=== PATIENT | female | born 1985 | race American Indian/Alaskan Native ===

== ENCOUNTER 2017-05-13 13:40 | Inpatient (IN) | payer MEDICAID ==
[2017-05-13] MEDS ORDERED: NACL 0.9% 1000 ML 2,000 ML ONE (13:47)
[2017-05-13] MEDS ORDERED: NACL 0.9% 500 ML 500 ML IV ONE (13:48)
[2017-05-13 14:09] LABS: Hematocrit 38.7 % (30.3-42.9); Hemoglobin 13.1 gm/dl (10.1-14.3); Mean Corpuscular HGB Conc 34 % (30-34); Mean Corpuscular Hemoglobin 30 pg (28-32); Mean Corpuscular Volume 89 fl (79-97); Platelet Count 214 K/mm3 (140-440); Red Blood Count 4.33 M/mm3 (3.65-5.03); Red Cell Distribution Width 12.6 % (13.2-15.2)
[2017-05-13] MEDS ORDERED: SUBLIMAZE IV ONE (14:16)
[2017-05-13] MEDS ORDERED: NACL 0.9% 1000 ML 2,000 ML IV ONE (14:16)
[2017-05-13] MEDS ORDERED: ZOFRAN IV ONE (14:16)
[2017-05-13] MEDS ORDERED: NACL 0.9% 1000 ML 1,000 ML IV ONE (14:16)
[2017-05-13] MEDS ORDERED: TYLENOL PO ONE (14:16)
--- NOTE | 2017-05-13 14:18 | Emergency Department Report ---
ED General Adult HPI - General Chief complaint: Weakness Stated complaint: UNRESPONSIVE Time Seen by Provider: 05/13/17 14:10 Source: patient, EMS (ems notes not available at time of chart dictation), RN notes reviewed Limitations: Physical Limitation - History of Present Illness Initial comments: This is a 32-year-old female who is previously unknown to this provider. The patient is brought to the hospital by EMS. To me, the patient endorses a complaint of chest pain and abdominal pain. Her symptoms have or present since yesterday. They're constant. Patient reports being seen at another hospital yesterday, [facility], and was presently diagnosed with pelvic inflammatory disease. Apparently she did not fill her antibiotics. As per verbal report from the nurse who triaged the patient, who in turn received verbal report from EMS, the patient was apparently found at home by EMS on account minimally responsive. They report that a child at home and contacted family using a face time application a cellular phone, and that the family contacted 911. The patient has no recollection of this. She denies headache, neck pain. Patient declines a pelvic examination. -: Gradual Location: chest, abdomen Consistency: constant Improves with: rest Worsens with: movement Associated Symptoms: chest pain, fever/chills, loss of appetite, malaise, weakness - Related Data Home Medications Medication Instructions Recorded Confirmed Last Taken No Known Home Medications [No 05/13/17 05/13/17 Unknown Reported Home Medications] Allergies Allergy/AdvReac Type Severity Reaction Status Date / Time Penicillins Allergy Rash Verified 05/13/17 14:07 ED Review of Systems ROS: Stated complaint: UNRESPONSIVE Other details as noted in HPI Comment: Unobtainable due to pts medical conditions Constitutional: fever, malaise Eyes: denies: vision change ENT: denies: epistaxis Respiratory: denies: wheezing Cardiovascular: chest pain Gastrointestinal: abdominal pain Neurological: confusion ED Past Medical Hx - Medications Home Medications: Home Medications Medication Instructions Recorded Confirmed Last Taken Type No Known Home Medications [No 05/13/17 05/13/17 Unknown History Reported Home Medications] ED Physical Exam - General Limitations: Physical Limitation General appearance: alert, in distress - Head Head exam: Present: atraumatic, normocephalic - Eye Eye exam: Present: normal appearance, EOMI - ENT ENT exam: Present: normal exam, normal orophraynx, mucous membranes moist, normal external ear exam - Neck Neck exam: Present: normal inspection, full ROM - Respiratory Respiratory exam: Present: normal lung sounds bilaterally. Absent: respiratory distress - Cardiovascular Cardiovascular Exam: Present: normal rhythm, tachycardia, normal heart sounds. Absent: systolic murmur, diastolic murmur, rubs, gallop - GI/Abdominal GI/Abdominal exam: Present: soft, tenderness, normal bowel sounds. Absent: distended, guarding, rebound, rigid, pulsatile mass - Extremities Exam Extremities exam: Present: normal inspection, full ROM, normal capillary refill. Absent: pedal edema, joint swelling, calf tenderness - Back Exam Back exam: Present: normal inspection, full ROM. Absent: tenderness, CVA tenderness (R), paraspinal tenderness, vertebral tenderness - Neurological Exam Neurological exam: Present: alert, oriented X3, CN II-XII intact, other ( Extraocular movements intact. Tongue midline. No facial droop. Facial sensation intact to light touch in the V1, V2, V3 distribution bilaterally. 5 and 5 strength in 4 extremities.. Sensation is intact to light touch in 4 extremities.). Absent: motor sensory deficit - Psychiatric Psychiatric exam: Present: anxious - Skin Skin exam: Present: warm, dry, intact, normal color. Absent: rash ED Course Vital Signs 05/13/17 05/13/17 05/13/17 13:50 14:41 16:57 Temperature 101.3 F H 102.7 F H Pulse Rate 135 H 132 H Respiratory 16 30 H 32 H Rate Blood Pressure 112/67 Blood Pressure 122/71 [Left] O2 Sat by Pulse 95 100 Oximetry 05/13/17 17:17 Temperature Pulse Rate Respiratory 28 H Rate Blood Pressure Blood Pressure [Left] O2 Sat by Pulse Oximetry - Reevaluation(s) Reevaluation #1: 05/13/17 16:40 Differential diagnosis, including but not limited to: Intracranial injury, intra -abdominal infection, thoracic infection, systemic inflammatory response syndrome Assessment and plan: 32-year-old female who is currently awake, alert and oriented, appears distressed but is currently not delirious or encephalopathic in my exam, does not have any neck pain or neck stiffness. Objectively speaking she is febrile, tachycardic with leukocytosis. Patient endorses rest of penicillins. She is loaded empirically with ceftriaxone, IV fluids and acetaminophen. A noncontrast CT scan of the brain was negative.Patient is clinically sober at this time. The cervical spine is cleared through nexus and barbadian c spine rule Given fever, tachycardia, abnormal vital signs, we will obtain CT scan of the chest, abdomen, pelvis. Patient declined a pelvic examination. Reevaluation #2: 05/13/17 16:52 CT scan of the chest: Slight consolidation in both lower lungs posteriorly may be atelectasis and/or small infiltrates Slight hazy opacity in the pulmonary parenchymal bilaterally may be mild pulmonary edema Azithromycin ordered for additional coverage Reevaluation #3: 05/13/17 17:51 Case discussed with gynecology, Dr. kriss Shelby, she is going to follow in consultation. Agrees with antibiotic coverage recommends Flagyl for additional anaerobic coverage. Given history of possible syncope, acute febrile illness/ sepsis syndrome, endorsement of chest pain, suggestion of bilateral lower lobe pneumonia, she requests medical admission, and indicates she will follow in consultation. Case presented to Dr. Murry the hospital physician he accepts the patient to the medical service. ED Medical Decision Making - Lab Data Result diagrams: 05/13/17 13:57 05/13/17 13:57 Vital Signs 05/13/17 05/13/17 13:50 14:41 Temperature 101.3 F H Pulse Rate 135 H Respiratory 16 30 H Rate Blood Pressure 112/67 O2 Sat by Pulse 95 Oximetry Lab Results 05/13/17 05/13/17 05/13/17 Range/Units 13:57 13:57 13:57 WBC 18.0 H (4.5-11.0) K/mm3 RBC 4.33 (3.65-5.03) M/mm3 Hgb 13.1 (10.1-14.3) gm/dl Hct 38.7 (30.3-42.9) % MCV 89 (79-97) fl MCH 30 (28-32) pg MCHC 34 (30-34) % RDW 12.6 L (13.2-15.2) % Plt Count 214 (140-440) K/mm3 Add Manual Diff Complete Total Counted 100 Seg Neutrophils % [employer] Seg Neuts % (Manual) 87.0 H (40.0-70.0) % Band Neutrophils % 7.0 % Lymphocytes % (Manual) 4.0 L (13.4-35.0) % Reactive Lymphs % (Man) 0 % Monocytes % (Manual) 2.0 (0.0-7.3) % Eosinophils % (Manual) 0 (0.0-4.3) % Basophils % (Manual) 0 (0.0-1.8) % Metamyelocytes % 0 % Myelocytes % 0 % Promyelocytes % 0 % Blast Cells % 0 % Nucleated RBC % Not Reportable Seg Neutrophils # Man 15.7 H (1.8-7.7) K/mm3 Band Neutrophils # 1.3 K/mm3 Lymphocytes # (Manual) 0.7 L (1.2-5.4) K/mm3 Abs React Lymphs (Man) 0.0 K/mm3 Monocytes # (Manual) 0.4 (0.0-0.8) K/mm3 Eosinophils # (Manual) 0.0 (0.0-0.4) K/mm3 Basophils # (Manual) 0.0 (0.0-0.1) K/mm3 Metamyelocytes # 0.0 K/mm3 Myelocytes # 0.0 K/mm3 Promyelocytes # 0.0 K/mm3 Blast Cells # 0.0 K/mm3 WBC Morphology Not Reportable Hypersegmented Neuts Not Reportable Hyposegmented Neuts Not Reportable Hypogranular Neuts Not Reportable Smudge Cells Not Reportable Toxic Granulation Not Reportable Toxic Vacuolation Not Reportable Dohle Bodies Not Reportable Pelger-Huet Anomaly Not Reportable Monik Rods Not Reportable Platelet Estimate Not Reportable Clumped Platelets Not Reportable Plt Clumps, EDTA Not Reportable Large Platelets Not Reportable Giant Platelets Not Reportable Platelet Satelliting Not Reportable Plt Morphology Comment Not Reportable RBC Morphology Normal Dimorphic RBCs Not Reportable Polychromasia Not Reportable Hypochromasia Not Reportable Poikilocytosis Not Reportable Anisocytosis Not Reportable Microcytosis Not Reportable Macrocytosis Not Reportable Spherocytes Not Reportable Pappenheimer Bodies Not Reportable Sickle Cells Not Reportable Target Cells Not Reportable Tear Drop Cells Not Reportable Ovalocytes Not Reportable Helmet Cells Not Reportable [place] Bodies Not Reportable [place] Rings Not Reportable [place] Cells Not Reportable Bite Cells Not Reportable Crenated Cell Not Reportable Elliptocytes Not Reportable Acanthocytes (Spur) Not Reportable Rouleaux Not Reportable Hemoglobin C Crystals Not Reportable Schistocytes Not Reportable Malaria parasites Not Reportable Ivan Bodies Not Reportable Hem Pathologist Commnt No PT 13.2 (12.2-14.9) Sec. INR 0.95 (0.87-1.13) VBG pH (7.320-7.420) Sodium 135 L (137-145) mmol/L Potassium 4.3 (3.6-5.0) mmol/L Chloride 97.1 L (98-107) mmol/L Carbon Dioxide 23 (22-30) mmol/L Anion Gap 19 mmol/L BUN 9 (7-17) mg/dL Creatinine 0.7 (0.7-1.2) mg/dL Estimated GFR > 60 ml/min BUN/Creatinine Ratio 13 % Glucose 114 H (65-100) mg/dL Lactic Acid (0.7-2.0) mmol/L Calcium 9.1 (8.4-10.2) mg/dL Total Bilirubin 0.70 (0.1-1.2) mg/dL AST 12 (5-40) units/L ALT 9 (7-56) units/L Alkaline Phosphatase 73 (35-129) units/L Total Protein 7.5 (6.3-8.2) g/dL Albumin 4.0 (3.9-5) g/dL Albumin/Globulin Ratio 1.1 % HCG, Quant (0-4) mIU/mL Urine Color (Yellow) Urine Turbidity (Clear) Urine pH (5.0-7.0) Ur Specific [place] (1.003-1.030) Urine Protein (Negative) mg/dL Urine Glucose (UA) (Negative) mg/dL Urine Ketones (Negative) mg/dL Urine Blood (Negative) Urine Nitrite (Negative) Urine Bilirubin (Negative) Urine Urobilinogen (<2.0) mg/dL Ur Leukocyte Esterase (Negative) Urine WBC (Auto) (0.0-6.0) /HPF Urine RBC (Auto) (0.0-6.0) /HPF U Epithel Cells (Auto) (0-13.0) /HPF Urine Bacteria (Auto) (Negative) /HPF Urine Mucus /HPF 05/13/17 05/13/17 05/13/17 Range/Units 13:57 13:57 14:20 WBC (4.5-11.0) K/mm3 RBC (3.65-5.03) M/mm3 Hgb (10.1-14.3) gm/dl Hct (30.3-42.9) % MCV (79-97) fl MCH (28-32) pg MCHC (30-34) % RDW (13.2-15.2) % Plt Count (140-440) K/mm3 Add Manual Diff Total Counted Seg Neutrophils % Seg Neuts % (Manual) (40.0-70.0) % Band Neutrophils % % Lymphocytes % (Manual) (13.4-35.0) % Reactive Lymphs % (Man) % Monocytes % (Manual) (0.0-7.3) % Eosinophils % (Manual) (0.0-4.3) % Basophils % (Manual) (0.0-1.8) % Metamyelocytes % % Myelocytes % % Promyelocytes % % Blast Cells % % Nucleated RBC % Seg Neutrophils # Man (1.8-7.7) K/mm3 Band Neutrophils # K/mm3 Lymphocytes # (Manual) (1.2-5.4) K/mm3 Abs React Lymphs (Man) K/mm3 Monocytes # (Manual) (0.0-0.8) K/mm3 Eosinophils # (Manual) (0.0-0.4) K/mm3 Basophils # (Manual) (0.0-0.1) K/mm3 Metamyelocytes # K/mm3 Myelocytes # K/mm3 Promyelocytes # K/mm3 Blast Cells # K/mm3 WBC Morphology Hypersegmented Neuts Hyposegmented Neuts Hypogranular Neuts Smudge Cells Toxic Granulation Toxic Vacuolation Dohle Bodies Pelger-Huet Anomaly Monik Rods Platelet Estimate Clumped Platelets Plt Clumps, EDTA Large Platelets Giant Platelets Platelet Satelliting Plt Morphology Comment RBC Morphology Dimorphic RBCs Polychromasia Hypochromasia Poikilocytosis Anisocytosis Microcytosis Macrocytosis Spherocytes Pappenheimer Bodies Sickle Cells Target Cells Tear Drop Cells Ovalocytes Helmet Cells [place] Bodies [place] Rings [place] Cells Bite Cells Crenated Cell Elliptocytes Acanthocytes (Spur) Rouleaux Hemoglobin C Crystals Schistocytes Malaria parasites Ivan Bodies Hem Pathologist Commnt PT (12.2-14.9) Sec. INR (0.87-1.13) VBG pH 7.392 (7.320-7.420) Sodium (137-145) mmol/L Potassium (3.6-5.0) mmol/L Chloride (98-107) mmol/L Carbon Dioxide (22-30) mmol/L Anion Gap mmol/L BUN (7-17) mg/dL Creatinine (0.7-1.2) mg/dL Estimated GFR ml/min BUN/Creatinine Ratio % Glucose (65-100) mg/dL Lactic Acid 0.90 (0.7-2.0) mmol/L Calcium (8.4-10.2) mg/dL Total Bilirubin (0.1-1.2) mg/dL AST (5-40) units/L ALT (7-56) units/L Alkaline Phosphatase (35-129) units/L Total Protein (6.3-8.2) g/dL Albumin (3.9-5) g/dL Albumin/Globulin Ratio % HCG, Quant < 2 (0-4) mIU/mL Urine Color (Yellow) Urine Turbidity (Clear) Urine pH (5.0-7.0) Ur Specific [place] (1.003-1.030) Urine Protein (Negative) mg/dL Urine Glucose (UA) (Negative) mg/dL Urine Ketones (Negative) mg/dL Urine Blood (Negative) Urine Nitrite (Negative) Urine Bilirubin (Negative) Urine Urobilinogen (<2.0) mg/dL Ur Leukocyte Esterase (Negative) Urine WBC (Auto) (0.0-6.0) /HPF Urine RBC (Auto) (0.0-6.0) /HPF U Epithel Cells (Auto) (0-13.0) /HPF Urine Bacteria (Auto) (Negative) /HPF Urine Mucus /HPF // Range/Units Unknown WBC (4.5-11.0) K/mm3 RBC (3.65-5.03) M/mm3 Hgb (10.1-14.3) gm/dl Hct (30.3-42.9) % MCV (79-97) fl MCH (28-32) pg MCHC (30-34) % RDW (13.2-15.2) % Plt Count (140-440) K/mm3 Add Manual Diff Total Counted Seg Neutrophils % Seg Neuts % (Manual) (40.0-70.0) % Band Neutrophils % % Lymphocytes % (Manual) (13.4-35.0) % Reactive Lymphs % (Man) % Monocytes % (Manual) (0.0-7.3) % Eosinophils % (Manual) (0.0-4.3) % Basophils % (Manual) (0.0-1.8) % Metamyelocytes % % Myelocytes % % Promyelocytes % % Blast Cells % % Nucleated RBC % Seg Neutrophils # Man (1.8-7.7) K/mm3 Band Neutrophils # K/mm3 Lymphocytes # (Manual) (1.2-5.4) K/mm3 Abs React Lymphs (Man) K/mm3 Monocytes # (Manual) (0.0-0.8) K/mm3 Eosinophils # (Manual) (0.0-0.4) K/mm3 Basophils # (Manual) (0.0-0.1) K/mm3 Metamyelocytes # K/mm3 Myelocytes # K/mm3 Promyelocytes # K/mm3 Blast Cells # K/mm3 WBC Morphology Hypersegmented Neuts Hyposegmented Neuts Hypogranular Neuts Smudge Cells Toxic Granulation Toxic Vacuolation Dohle Bodies Pelger-Huet Anomaly Monik Rods Platelet Estimate Clumped Platelets Plt Clumps, EDTA Large Platelets Giant Platelets Platelet Satelliting Plt Morphology Comment RBC Morphology Dimorphic RBCs Polychromasia Hypochromasia Poikilocytosis Anisocytosis Microcytosis Macrocytosis Spherocytes Pappenheimer Bodies Sickle Cells Target Cells Tear Drop Cells Ovalocytes Helmet Cells [place] Bodies [place] Rings Laure Cells Bite Cells Crenated Cell Elliptocytes Acanthocytes (Spur) Rouleaux Hemoglobin C Crystals Schistocytes Malaria parasites Ivan Bodies Hem Pathologist Commnt PT (12.2-14.9) Sec. INR (0.87-1.13) VBG pH (7.320-7.420) Sodium (137-145) mmol/L Potassium (3.6-5.0) mmol/L Chloride (98-107) mmol/L Carbon Dioxide (22-30) mmol/L Anion Gap mmol/L BUN (7-17) mg/dL Creatinine (0.7-1.2) mg/dL Estimated GFR ml/min BUN/Creatinine Ratio % Glucose (65-100) mg/dL Lactic Acid (0.7-2.0) mmol/L Calcium (8.4-10.2) mg/dL Total Bilirubin (0.1-1.2) mg/dL AST (5-40) units/L ALT (7-56) units/L Alkaline Phosphatase (35-129) units/L Total Protein (6.3-8.2) g/dL Albumin (3.9-5) g/dL Albumin/Globulin Ratio % HCG, Quant (0-4) mIU/mL Urine Color Yellow (Yellow) Urine Turbidity Clear (Clear) Urine pH 5.0 (5.0-7.0) Ur Specific [place] 1.033 H (1.003-1.030) Urine Protein 30 mg/dl (Negative) mg/dL Urine Glucose (UA) Neg (Negative) mg/dL Urine Ketones Tr (Negative) mg/dL Urine Blood Mod (Negative) Urine Nitrite Neg (Negative) Urine Bilirubin Neg (Negative) Urine Urobilinogen 2.0 (<2.0) mg/dL Ur Leukocyte Esterase Mod (Negative) Urine WBC (Auto) 5.0 (0.0-6.0) /HPF Urine RBC (Auto) 48.0 (0.0-6.0) /HPF U Epithel Cells (Auto) 3.0 (0-13.0) /HPF Urine Bacteria (Auto) 1+ (Negative) /HPF Urine Mucus 3+ /HPF - EKG Data -: EKG Interpreted by Wy - Radiology Data Radiology results: report reviewed, image reviewed Noncontrast CT scan of the brain: Negative as per radiology Report Referring Physician: RYLIE HARVEY Patient Name: ANDERSON ALFRED Date of : 1985 Sex: Female Report Date: 2017-05-13 Report Status: Finalized Findings [facility] [address] [place] [address] Cat Scan Report Signed Patient: ANDERSON ALFRED MR#: [id number] : 1985 Acct:[id number] Age/Sex: 32 / F ADM Date: 05/13/17 Loc: ED Attending Dr: Ordering Physician: RYLIE HARVEY MD Date of Service: 05/13/17 Procedure(s): CT abdomen pelvis w con Accession Number(s): [id number] cc: RYLIE HARVEY MD FINAL REPORT EXAM: CT ANGIOGRAPHY CHEST HISTORY: sob TECHNIQUE: CT examination of the chest with IV contrast CT angiographic 2D and thick slab 3D image post-processing PRIORS: AP CT 05/13/2017 FINDINGS: Cardiac size at upper limits of normal. No evidence of pericardial effusion. Intact normal caliber thoracic aorta. Normal-appearing esophagus. No hilar mass or mediastinal adenopathy. The visualized pulmonary arteries are diffusely patent bilaterally. There is no filling defect to suggest PE. No acute fracture. No pneumothorax. No definite pleural effusion. No definite lung mass or nodule. Linear densities and slight consolidation in both lower lungs posteriorly. Nonspecific hazy ground-glass opacity throughout both lungs diffusely. This may be mild pulmonary edema. IMPRESSION: Slight consolidation in both lower lungs posteriorly may be atelectasis and/or small infiltrates Slight hazy opacity in the pulmonary parenchymal bilaterally may be mild pulmonary edema No CT evidence of PE Transcribed By: BAL Dictated By: CORNELIO MENDEZ MD Electronically Authenticated By: CORNELIO MENDEZ MD Signed Date/Time: 05/13/17 1234 DD/ 1234 Critical care attestation.: If time is entered above; I have spent that time in minutes in the direct care of this critically ill patient, excluding procedure time. ED Disposition Clinical Impression: SIRS (systemic inflammatory response syndrome) Disposition: [id number] OP ADMIT IP TO THIS HOSP Is pt being admited?: Yes Condition: Good Referrals: PRIMARY CARE, [Primary Care Provider] - 3-5 Days
[2017-05-13 14:19] LABS: INR 0.95 (0.87-1.13)
[2017-05-13 14:24] LABS: BUN/Creatinine Ratio 13; Blood Urea Nitrogen 9 mg/dL (7-17); Calcium 9.1 mg/dL (8.4-10.2); Carbon Dioxide 23 mmol/L (22-30); Glucose 114 mg/dL (65-100)
[2017-05-13 14:25] LABS: Alanine Aminotransferase 9 units/L (7-56); Albumin/Globulin Ratio 1.1 %; Alkaline Phosphatase 73 units/L (35-129); Anion Gap 19 mmol/L; Chloride 97.1 mmol/L (98-107); Potassium 4.3 mmol/L (3.6-5.0); Sodium 135 mmol/L (137-145); Total Protein 7.5 g/dL (6.3-8.2)
[2017-05-13 14:36] LABS: Bacteria,Urine 1+ /HPF (Negative); Bilirubin,Urine NEG (Negative); Blood,Urine MOD (Negative); Ketones,Urine TR mg/dL (Negative); Leukocyte Esterase,Urine MOD (Negative); Mucus,Urine 3+ /HPF; Nitrite,Urine NEG (Negative)
[2017-05-13] MEDS ORDERED: NACL ONE (14:45)
--- NOTE | 2017-05-13 14:45 | XRay Report ---
PORTABLE CHEST INDICATION: Possible sepsis. COMPARISON: None similar at this institution. FINDINGS: Portable, frontal chest radiograph demonstrates limited inspiration with mild exaggerated cardiomediastinal silhouette. Grossly normal heart size and clear lungs. EKG leads. Intact bones. CONCLUSION: Limited inspiration without acute chest process, as described. Thank you for the opportunity to participate in this patient's care.
[2017-05-13 14:51] LABS: Blastocytes % (Manual) 0 %
[2017-05-13 14:52] LABS: Basophils % (Manual) 0 % (0.0-1.8); Diff Status Complete; Eosinophils % (Manual) 0 % (0.0-4.3); RBC Morphology Normal
[2017-05-13] MEDS ORDERED: ROCEPHIN/NS 1 GM/50 ML 1 GM/50 ML BAG IV ONE (15:26)
[2017-05-13] MEDS ORDERED: cefTRIAXone 1 GM in NACL 0.9% 20 ML IV ONE (15:30)
--- NOTE | 2017-05-13 15:35 | Cat Scan Report ---
FINAL REPORT EXAM: CT HEAD/BRAIN WO CON HISTORY: ams fever, now resolved TECHNIQUE: CT of the head was performed. No intravenous contrast was administered. PRIORS: None. FINDINGS: There is no evidence of intracranial hemorrhage. There is no edema, mass effect or midline shift. There are no abnormal extra-axial fluid collections. The ventricles are appropriate for brain volume. There is no skull fracture seen. The visualized aspects of the sinuses are clear. IMPRESSION: There is no acute intracranial abnormality identified.
--- NOTE | 2017-05-13 16:37 | Cat Scan Report ---
FINAL REPORT EXAM: CT ANGIO CHEST HISTORY: cp sepsis TECHNIQUE: CT examination of the chest with IV contrast CT angiographic 2D and thick slab 3D image post-processing PRIORS: AP CT 05/13/2017 FINDINGS: Cardiac size at upper limits of normal. No evidence of pericardial effusion. Intact normal caliber thoracic aorta. Normal-appearing esophagus. No hilar mass or mediastinal adenopathy. The visualized pulmonary arteries are diffusely patent bilaterally. There is no filling defect to suggest PE. No acute fracture. No pneumothorax. No definite pleural effusion. No definite lung mass or nodule. Linear densities and slight consolidation in both lower lungs posteriorly. Nonspecific hazy ground-glass opacity throughout both lungs diffusely. This may be mild pulmonary edema. IMPRESSION: Slight consolidation in both lower lungs posteriorly may be atelectasis and/or small infiltrates Slight hazy opacity in the pulmonary parenchymal bilaterally may be mild pulmonary edema No CT evidence of PE
--- NOTE | 2017-05-13 16:37 | Cat Scan Report ---
FINAL REPORT EXAM: CT ABD AND PELVIS W CONTRAST HISTORY: sob . Patient disease reports being diagnosed with pelvic inflammatory disease. TECHNIQUE: CT examination of the ABDOMEN after IV contrast CT examination of the PELVIS after IV contrast PRIORS: Chest CT 05/13/2017 FINDINGS: Slight consolidation in both lower lungs posteriorly may be atelectasis and/or small infiltrates. Cardiac size at upper limits of normal. Normal-appearing liver, gallbladder, adrenals, pancreas, and spleen. Intact normal caliber abdominal aorta and IVC. Normal-appearing kidneys and ureters. Very small fat containing umbilical hernia. Normal-appearing stomach and duodenum. No small bowel distention in the abdomen and pelvis. Nonspecific slight to moderate pelvic free fluid. This may be reactive. Nonspecific cystic changes in both ovaries. These may be follicles and/or follicular cysts. Nonspecific rim enhancing cyst in right ovarian region may be a 2.7 cm hemorrhagic cyst. It appears partly decompressed. Pelvic fluid may be from inflammation, infection, or recently ruptured ovarian cyst. It may correspond with history of pelvic inflammatory disease. Normal-appearing urinary bladder uterus, rectum, and sigmoid colon. No free air or colonic distention. Prominent stool from cecum to sigmoid may reflect constipation. Normal-appearing terminal ileum and visible appendix. IMPRESSION: Slight consolidation in both lower lungs posteriorly may be atelectasis and/or small infiltrates Nonspecific ring-enhancing lesion in the region of the right ovary may be a partly ruptured hemorrhagic cyst. Cystic changes in both ovaries may be follicles and/or follicular cyst. Moderate pelvic free fluid may be reactive. It may be from inflammation, infection, or history of pelvic inflammatory disease Slight prominence of stool from cecum to sigmoid may reflect constipation
[2017-05-13] MEDS ORDERED: TORADOL IV ONE (17:03)
[2017-05-13] MEDS ORDERED: ZITHROMAX 500 MG in NACL 0.9% 250ML 250 ML IV ONE (17:30)
--- NOTE | 2017-05-13 17:57 | History and Physical Report ---
History of Present Illness Chief complaint: I feel weak, and i just don't feel good. History of present illness: 32 YO Female with PID presents to ED for evaluation. Pt unable to provide detailed history. Pt history was taken from ED staff and medical record. Pt was transported to ED by EMS. Patient reports being seen at [facility] and was diagnosed with pelvic inflammatory disease. Pt did not fill her antibiotic prescription. Pt was found down and unresponsive by her child, who then contacted adult family member using a face time application on a cellular phone, and the family contacted EMS. Upon EMS arrival, the patient was found down and unresponsive. Pt transported to [facility] for evaluation. Pt seen and evaluated in ED and found to have sepsis suspected secondary to PID. 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 No reports of fever, chills, CP, Palpitations, Trauma, productive cough, recent ill contacts, BRBPR, prolonged travel/immobility, Individual/family history of DVT/PE. Past History Past Medical History: other (PID) Past Surgical History: No surgical history, Other (reviewed) Social history: single, lives with family Family history: hypertension Medications and Allergies Allergies Allergy/AdvReac Type Severity Reaction Status Date / Time Penicillins Allergy Rash Verified 05/13/17 14:07 Home Medications Medication Instructions Recorded Confirmed Last Taken Type No Known Home Medications [No 05/13/17 05/13/17 Unknown History Reported Home Medications] Active Meds: Active Medications Azithromycin 500 mg/ Sodium (Chloride) 250 mls @ 250 mls/hr IV ONCE.ED ONE Stop: 05/13/17 18:29 Last Admin: 05/13/17 17:37 Dose: 250 mls/hr Metronidazole (Flagyl 500 Mg/100 Ml) 500 mg in 100 mls @ 200 mls/hr IV ONCE RAJAN Review of Systems ROS unobtainable: due to mental status Exam - Constitutional Vitals: Temp Pulse Resp BP Pulse Ox 102.7 F H 132 H 28 H 122/71 100 05/13/17 16:57 05/13/17 16:57 05/13/17 17:17 05/13/17 16:57 05/13/17 16:57 General appearance: Present: mild distress - EENT Eyes: Present: PERRL ENT: hearing intact, clear oral mucosa - Neck Neck: Present: supple, normal ROM - Respiratory Respiratory effort: normal Respiratory: bilateral: CTA - Cardiovascular Heart Sounds: Present: S1 & S2. Absent: rub, click - Extremities Extremities: pulses symmetrical, No edema Peripheral Pulses: abnormal (Capillary refill greater than 3.5 seconds) - Abdominal General gastrointestinal: Present: soft, tender, non-distended Localized gastrointestinal: tender: epigastric periumbilical Female genitourinary: Present: normal - Rectal Rectal Exam: normal exam-external/orifice - Integumentary Integumentary: Present: clear, dry, clammy, decreased turgor - Musculoskeletal Musculoskeletal: generalized weakness - Psychiatric Psychiatric: no memory intact - Neurologic Neurologic: CNII-XII intact, moves all extremities Results - Labs CBC & Chem 7: 05/13/17 13:57 05/13/17 13:57 Labs: Abnormal lab results 05/13/17 05/13/17 05/13/17 Range/Units 13:57 13:57 Unknown WBC 18.0 H (4.5-11.0) K/mm3 RDW 12.6 L (13.2-15.2) % Seg Neuts % (Manual) 87.0 H (40.0-70.0) % Lymphocytes % (Manual) 4.0 L (13.4-35.0) % Seg Neutrophils # Man 15.7 H (1.8-7.7) K/mm3 Lymphocytes # (Manual) 0.7 L (1.2-5.4) K/mm3 Sodium 135 L (137-145) mmol/L Chloride 97.1 L (98-107) mmol/L Glucose 114 H (65-100) mg/dL Ur Specific Melbeta 1.033 H (1.003-1.030) Assessment and Plan - Patient Problems (1) Sepsis Current Visit: Yes Status: Acute Qualifiers: Sepsis type: sepsis due to unspecified organism Qualified Code(s): A41.9 - Sepsis, unspecified organism Plan to address problem: Iv abx, IVF resuscitation, monitor uop q shift, blood cultures, urinalysis, serial lactic acid, cbc, bmp, Chest X ray, (2) Unconscious state Current Visit: Yes Status: Acute Plan to address problem: CT Head, neuro checks, treat sepsis, IVF resuscitation, (3) PID (pelvic inflammatory disease) Current Visit: Yes Status: Acute Plan to address problem: MOBILE PET GROOMER consulted in ED, IV abx, supportive care. (4) DVT prophylaxis Current Visit: Yes Status: Acute
[2017-05-13] MEDS ORDERED: MILK OF MAGNESIA PO PRN (18:00)
[2017-05-13] MEDS ORDERED: VANCOMYCIN PHARMACY TO DOSE IV SCH (18:00)
[2017-05-13] MEDS ORDERED: DULCOLAX PR PRN (18:00)
[2017-05-13] MEDS ORDERED: ZOFRAN IV PRN (18:00)
[2017-05-13] MEDS ORDERED: VANCOMYCIN VIAL IV ONE (18:00)
[2017-05-13] MEDS ORDERED: NACL 0.9% 1000 ML IV ONE (18:00)
[2017-05-13] MEDS ORDERED: VANCOMYCIN 1,500 MG in NACL 0.9% 500 ML 500 ML IV ONE (18:30)
[2017-05-13] MEDS: PROVENTIL IH PRN (19:19)
[2017-05-13] MEDS ORDERED: LEVAQUIN 750MG/150ML 750 MG/150 ML BAG IV ONE (20:00)
[2017-05-13] MEDS: TYLENOL PO PRN (22:22)
[2017-05-13] MEDS: BENADRYL IV PRN (23:05)
[2017-05-13] MEDS: NORCO 5/325 PO PRN (23:22)
[2017-05-13] MEDS: FLAGYL 500 MG/100 ML 500 MG/100 ML BAG IV SCH ×3 (23:22→23:25)
[2017-05-14] MEDS: FLAGYL 500 MG/100 ML 500 MG/100 ML BAG IV SCH ×5 (05:44→21:10)
[2017-05-14] MEDS: NORCO 5/325 PO PRN ×4 (06:42→20:20)
[2017-05-14 07:18] LABS: Bilirubin,Urine NEG (Negative); Blood,Urine SM (Negative); Ketones,Urine TR mg/dL (Negative); Leukocyte Esterase,Urine MOD (Negative); Mucus,Urine 3+ /HPF; Nitrite,Urine NEG (Negative); Protein,Urine <15 mg/dL mg/dL (Negative); Urobilinogen,Urine < 2.0 mg/dL (<2.0)
[2017-05-14] MEDS ORDERED: VANCOMYCIN/NS 1 GM/250 ML 1 GM/250 ML BAG IV SCH (08:00)
--- NOTE | 2017-05-14 10:40 | Consultation ---
History of Present Illness Consult date: 05/13/17 Requesting physician: RYLIE HARVEY Reason for consult: other (PID ) History of present illness: Thank you kindly for the consult. Pt is a 32 year old female LMP "early April" who was admitted yesterday for altered medical status yesterday. She reports that she had lower abdominal pain, cramping and thick yellow discharge that was worsening for one week which prompted her to be evaluated at [facility] on Apr where she had a pelvic exam and a urine test and was told she had pelvic inflammatory disease and was treated antibiotics in hospital (pt does not recall the name, records not available at this time) and discharged on Flagyl her mother. At home the night of the and into the the patient took 3 doses of Flagyl but felt that it made her stomach pain worse. "The next thing I knew I was in the hospital." According to her mother, she was not responsive when she got to the hospital, but become more alert during the hospitalization. She has been on antibiotic therapy since admission. 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: other (PID diagnosed on 05/12/17) Social history: no significant social history - Obstetrical History : 1 Para: 1 Medications and Allergies Allergies Allergy/AdvReac Type Severity Reaction Status Date / Time Penicillins Allergy Rash Verified 05/13/17 14:07 Home Medications Medication Instructions Recorded Confirmed Last Taken Type No Known Home Medications [No 05/13/17 05/13/17 Unknown History Reported Home Medications] Active Meds: Active Medications Acetaminophen (Tylenol) 650 mg PO Q4H PRN PRN Reason: Pain MILD(1-3)/Fever >100.5/LATIF Last Admin: 05/13/17 22:22 Dose: 650 mg Acetaminophen/Hydrocodone Bitart ([place] 5/325) 1 each PO Q4H PRN PRN Reason: Pain, Moderate (4-6) Last Admin: 05/14/17 06:42 Dose: 1 each Albuterol (Proventil) 2.5 mg IH Q4HRT PRN PRN Reason: Shortness Of Breath Last Admin: 05/13/17 19:19 Dose: 2.5 mg Bisacodyl (Dulcolax) 10 mg DE QDAY PRN PRN Reason: Constipation unrelieved by MOM Diphenhydramine HCl (Benadryl) 25 mg IV Q6H PRN PRN Reason: Itching Last Admin: 05/13/17 23:05 Dose: 25 mg Metronidazole (Flagyl 500 Mg/100 Ml) 500 mg in 100 mls @ 100 mls/hr IV Q8HR [facility] Last Admin: 05/14/17 07:47 Dose: Not Given Vancomycin HCl (Vancomycin/Ns 1 Gm/250 Ml) 1 gm in 250 mls @ 166.667 mls/hr IV Q8H [facility] Magnesium Hydroxide (Milk Of Magnesia) 30 ml PO Q4H PRN PRN Reason: Constipation Ondansetron HCl (Zofran) 4 mg IV Q8H PRN PRN Reason: N/V unrelieved by Reglan Vancomycin HCl (Vancomycin Pharmacy To Dose) 1 each IV PKCONSULT RAJAN PRN Reason: Protocol Review of Systems All systems: negative Cardiovascular: no chest pain, no shortness of breath Breasts: deferred Gastrointestinal: no nausea, no vomiting, no diarrhea, no constipation Genitourinary: vaginal discharge, pelvic pain, no vaginal bleeding Rectal Exam: deferred - Vital Signs Vital signs: Vital Signs Temp Pulse Resp BP Pulse Ox 101.3 F H 135 H 16 112/67 95 05/13/17 13:50 05/13/17 13:50 05/13/17 13:50 05/13/17 13:50 05/13/17 13:50 Temp Pulse Resp BP Pulse Ox 98.3 F 101 H 20 93/43 100 05/14/17 08:04 05/14/17 08:04 05/14/17 08:04 05/14/17 08:04 05/14/17 08:07 - Physical Exam Breasts: Positive: deferred Cardiovascular: Regular rate Lungs: Positive: Clear to auscultation Abdomen: Positive: soft, tenderness (minimal ), normal bowel sounds Extremities: Positive: normal Results Result Diagrams: 05/14/17 10:26 05/14/17 10:26 Abnormal lab results 05/13/17 05/13/17 05/13/17 Range/Units 13:57 13:57 Unknown WBC 18.0 H (4.5-11.0) K/mm3 RDW 12.6 L (13.2-15.2) % Seg Neuts % (Manual) 87.0 H (40.0-70.0) % Lymphocytes % (Manual) 4.0 L (13.4-35.0) % Seg Neutrophils # Man 15.7 H (1.8-7.7) K/mm3 Lymphocytes # (Manual) 0.7 L (1.2-5.4) K/mm3 Sodium 135 L (137-145) mmol/L Chloride 97.1 L (98-107) mmol/L Glucose 114 H (65-100) mg/dL Ur Specific [place] 1.033 H (1.003-1.030) Urine WBC (Auto) (0.0-6.0) /HPF 05/14/17 Range/Units 07:04 WBC (4.5-11.0) K/mm3 RDW (13.2-15.2) % Seg Neuts % (Manual) (40.0-70.0) % Lymphocytes % (Manual) (13.4-35.0) % Seg Neutrophils # Man (1.8-7.7) K/mm3 Lymphocytes # (Manual) (1.2-5.4) K/mm3 Sodium (137-145) mmol/L Chloride (98-107) mmol/L Glucose (65-100) mg/dL Ur Specific [place] (1.003-1.030) Urine WBC (Auto) 40.0 H (0.0-6.0) /HPF All other labs normal. CT scan - abdomen: report reviewed CT scan - pelvis: report reviewed Chest x-ray: report reviewed Assessment and Plan A: Suspected PID; symptomatically improved since admission Possible bilateral pneumonia 2.7 cm likely hemorrhagic cyst SIRS Asthma P: Consider record request from [facility] for results of any studies completed there First line regimen for treatment of PID includes Cefoxitin (2g IV q 6 hrs) or Cefotetan (2g IV q 12 hrs) and Doxycycline 100 mg BID Once the patient is improved clinically with resolution of severe abdominal pain and fever, she may be transitioned to Doxycycline 100 mg BID for a total of fourteen days The patient does not presently have a adjunct instructor of women's studies, and I would be happy to see her in follow up at [facility] in 2 weeks Thank you again for the consult and please do not hesitate to contact me if additional information is needed.
[2017-05-14 10:49] LABS: Basophils % (Auto) 0.2 % (0.0-1.8); Eosinophils % (Auto) 2.4 % (0.0-4.3); Hematocrit 33.4 % (30.3-42.9); Hemoglobin 11.6 gm/dl (10.1-14.3); Mean Corpuscular HGB Conc 35 % (30-34); Mean Corpuscular Hemoglobin 31 pg (28-32); Mean Corpuscular Volume 90 fl (79-97); Platelet Count 176 K/mm3 (140-440); Red Blood Count 3.72 M/mm3 (3.65-5.03); Red Cell Distribution Width 12.7 % (13.2-15.2); White Blood Count 10.6 K/mm3 (4.5-11.0)
[2017-05-14 10:50] LABS: Anion Gap 15 mmol/L; BUN/Creatinine Ratio 12; Blood Urea Nitrogen 7 mg/dL (7-17); Calcium 8.1 mg/dL (8.4-10.2); Carbon Dioxide 22 mmol/L (22-30); Chloride 106.2 mmol/L (98-107); Glucose 117 mg/dL (65-100); Potassium 3.7 mmol/L (3.6-5.0); Sodium 139 mmol/L (137-145)
--- NOTE | 2017-05-14 13:06 | Progress Note ---
Assessment and Plan Assessment and plan: 32-year-old -[place] female was admitted yesterday for AMS. Patient complains she had fever, and vaginal discharge. She was on Flagyl. Sepsis PID UTI Metabolic encephalopathy - Patient is on IV antibiotics and IV fluids - NEONATAL DOCTOR evaluated her - Encephalopathy resolved DVT prophylaxis - Lovenox Disposition - Continue inpatient care. History Interval history: Patient was seen and evaluated this morning, she was alert and oriented, had fever episode overnight. Hospitalist Physical - Physical exam Narrative exam: Not in cardiopulmonary distress. The patient appeared well nourished and normally developed. Vital signs as documented. Head exam is unremarkable. No scleral icterus . Neck is without jugular venous distension, thyromegaly, or carotid bruits. Lungs are clear to auscultation. Cardiac exam reveals regular rate and Rhythm. First and second heart sounds normal. No murmurs, rubs or gallops. Abdominal exam mild lower abdominal tenderness. Extremities are nonedematous and both femoral and pedal pulses are normal. 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 No focal weakness. - Constitutional Vitals: Temp Pulse Resp BP Pulse Ox 98.3 F 101 H 20 93/43 100 05/14/17 08:04 05/14/17 08:04 05/14/17 08:04 05/14/17 08:04 05/14/17 08:07 General appearance: Present: mild distress Results - Labs CBC & Chem 7: 05/14/17 10:26 05/14/17 10:26 Labs: Laboratory Last Values WBC 10.6 K/mm3 (4.5-11.0) 05/14/17 10:26 RBC 3.72 M/mm3 (3.65-5.03) 05/14/17 10:26 Hgb 11.6 gm/dl (10.1-14.3) 05/14/17 10:26 Hct 33.4 % (30.3-42.9) 05/14/17 10:26 MCV 90 fl (79-97) 05/14/17 10:26 MCH 31 pg (28-32) 05/14/17 10:26 MCHC 35 % (30-34) H 05/14/17 10:26 RDW 12.7 % (13.2-15.2) L 05/14/17 10:26 Plt Count 176 K/mm3 (140-440) 05/14/17 10:26 Lymph % (Auto) 14.1 % (13.4-35.0) 05/14/17 10:26 Randall % (Auto) 5.3 % (0.0-7.3) 05/14/17 10:26 Eos % (Auto) 2.4 % (0.0-4.3) 05/14/17 10:26 Baso % (Auto) 0.2 % (0.0-1.8) 05/14/17 10: Lymph # 1.5 K/mm3 (1.2-5.4) 05/14/17 10: Randall # 0.6 K/mm3 (0.0-0.8) 05/14/17 10: Eos # 0.3 K/mm3 (0.0-0.4) 05/14/17 10: Baso # 0.0 K/mm3 (0.0-0.1) 05/14/17 10:26 Add Manual Diff Complete 05/13/17 13:57 Total Counted 100 05/13/17 13:57 Seg Neutrophils % 78.0 % (40.0-70.0) H 05/14/17 10:26 Seg Neuts % (Manual) 87.0 % (40.0-70.0) H 05/13/17 13:57 Band Neutrophils % 7.0 % 05/13/17 13:57 Lymphocytes % (Manual) 4.0 % (13.4-35.0) L 05/13/17 13:57 Reactive Lymphs % (Man) 0 % 05/13/17 13:57 Monocytes % (Manual) 2.0 % (0.0-7.3) 05/13/17 13:57 Eosinophils % (Manual) 0 % (0.0-4.3) 05/13/17 13:57 Basophils % (Manual) 0 % (0.0-1.8) 05/13/17 13:57 Metamyelocytes % 0 % 05/13/17 13:57 Myelocytes % 0 % 05/13/17 13:57 Promyelocytes % 0 % 05/13/17 13:57 Blast Cells % 0 % 05/13/17 13:57 Nucleated RBC % Not Reportable 05/13/17 13:57 Seg Neutrophils # 8.2 K/mm3 (1.8-7.7) H 05/14/17 10:26 Seg Neutrophils # Man 15.7 K/mm3 (1.8-7.7) H 05/13/17 13:57 Band Neutrophils # 1.3 K/mm3 05/13/17 13:57 Lymphocytes # (Manual) 0.7 K/mm3 (1.2-5.4) L 05/13/17 13:57 Abs React Lymphs (Man) 0.0 K/mm3 05/13/17 13:57 Monocytes # (Manual) 0.4 K/mm3 (0.0-0.8) 05/13/17 13:57 Eosinophils # (Manual) 0.0 K/mm3 (0.0-0.4) 05/13/17 13:57 Basophils # (Manual) 0.0 K/mm3 (0.0-0.1) 05/13/17 13:57 Metamyelocytes # 0.0 K/mm3 05/13/17 13:57 Myelocytes # 0.0 K/mm3 05/13/17 13:57 Promyelocytes # 0.0 K/mm3 05/13/17 13:57 Blast Cells # 0.0 K/mm3 05/13/17 13:57 WBC Morphology Not Reportable 05/13/17 13:57 Hypersegmented Neuts Not Reportable 05/13/17 13:57 Hyposegmented Neuts Not Reportable 05/13/17 13:57 Hypogranular Neuts Not Reportable 05/13/17 13:57 Smudge Cells Not Reportable 05/13/17 13:57 Toxic Granulation Not Reportable 05/13/17 13:57 Toxic Vacuolation Not Reportable 05/13/17 13:57 Dohle Bodies Not Reportable 05/13/17 13:57 Pelger-Huet Anomaly Not Reportable 05/13/17 13:57 Monik Rods Not Reportable 05/13/17 13:57 Platelet Estimate Not Reportable 05/13/17 13:57 Clumped Platelets Not Reportable 05/13/17 13:57 Plt Clumps, EDTA Not Reportable 05/13/17 13:57 Large Platelets Not Reportable 05/13/17 13:57 Giant Platelets Not Reportable 05/13/17 13:57 Platelet Satelliting Not Reportable 05/13/17 13:57 Plt Morphology Comment Not Reportable 05/13/17 13:57 RBC Morphology Normal 05/13/17 13:57 Dimorphic RBCs Not Reportable 05/13/17 13:57 Polychromasia Not Reportable 05/13/17 13:57 Hypochromasia Not Reportable 05/13/17 13:57 Poikilocytosis Not Reportable 05/13/17 13:57 Anisocytosis Not Reportable 05/13/17 13:57 Microcytosis Not Reportable 05/13/17 13:57 Macrocytosis Not Reportable 05/13/17 13:57 Spherocytes Not Reportable 05/13/17 13:57 Pappenheimer Bodies Not Reportable 05/13/17 13:57 Sickle Cells Not Reportable 05/13/17 13:57 Target Cells Not Reportable 05/13/17 13:57 Tear Drop Cells Not Reportable 05/13/17 13:57 Ovalocytes Not Reportable 05/13/17 13:57 Helmet Cells Not Reportable 05/13/17 13:57 Marie-Sturtevant Bodies Not Reportable 05/13/17 13:57 [place] Rings Not Reportable 05/13/17 13:57 [place] Cells Not Reportable 05/13/17 13:57 Bite Cells Not Reportable 05/13/17 13:57 Crenated Cell Not Reportable 05/13/17 13:57 Elliptocytes Not Reportable 05/13/17 13:57 Acanthocytes (Spur) Not Reportable 05/13/17 13:57 Rouleaux Not Reportable 05/13/17 13:57 Hemoglobin C Crystals Not Reportable 05/13/17 13:57 Schistocytes Not Reportable 05/13/17 13:57 Malaria parasites Not Reportable 05/13/17 13:57 Ivan Bodies Not Reportable 05/13/17 13:57 Hem Pathologist Commnt No 05/13/17 13:57 PT 13.2 Sec. (12.2-14.9) 05/13/17 13:57 INR 0.95 (0.87-1.13) 05/13/17 13:57 VBG pH 7.392 (7.320-7.420) 05/13/17 13:57 Sodium 139 mmol/L (137-145) 05/14/17 10:26 Potassium 3.7 mmol/L (3.6-5.0) 05/14/17 10:26 Chloride 106.2 mmol/L (98-107) 05/14/17 10:26 Carbon Dioxide 22 mmol/L (22-30) 05/14/17 10:26 Anion Gap 15 mmol/L 05/14/17 10:26 BUN 7 mg/dL (7-17) 05/14/17 10:26 Creatinine 0.6 mg/dL (0.7-1.2) L 05/14/17 10:26 Estimated GFR > 60 ml/min 05/14/17 10:26 BUN/Creatinine Ratio 12 % 05/14/17 10:26 Glucose 117 mg/dL (65-100) H 05/14/17 10:26 Lactic Acid 0.70 mmol/L (0.7-2.0) 05/14/17 00:09 Calcium 8.1 mg/dL (8.4-10.2) L 05/14/17 10:26 Total Bilirubin 0.70 mg/dL (0.1-1.2) 05/13/17 13:57 AST 12 units/L (5-40) 05/13/17 13:57 ALT 9 units/L (7-56) 05/13/17 13:57 Alkaline Phosphatase 73 units/L (35-129) 05/13/17 13:57 Total Protein 7.5 g/dL (6.3-8.2) 05/13/17 13:57 Albumin 4.0 g/dL (3.9-5) 05/13/17 13:57 Albumin/Globulin Ratio 1.1 % 05/13/17 13:57 HCG, Quant < 2 mIU/mL (0-4) 05/13/17 14:20 Urine Color Yellow (Yellow) 05/14/17 07:04 Urine Turbidity Slightly-cloudy (Clear) 05/14/17 07:04 Urine pH 5.0 (5.0-7.0) 05/14/17 07:04 Ur Specific [place] 1.027 (1.003-1.030) 05/14/17 07:04 Urine Protein <15 mg/dl mg/dL (Negative) 05/14/17 07:04 Urine Glucose (UA) Neg mg/dL (Negative) 05/14/17 07:04 Urine Ketones Tr mg/dL (Negative) 05/14/17 07:04 Urine Blood Sm (Negative) 05/14/17 07:04 Urine Nitrite Neg (Negative) 05/14/17 07:04 Urine Bilirubin Neg (Negative) 05/14/17 07:04 Urine Urobilinogen < 2.0 mg/dL (<2.0) 05/14/17 07:04 Ur Leukocyte Esterase Mod (Negative) 05/14/17 07:04 Urine WBC (Auto) 40.0 /HPF (0.0-6.0) H 05/14/17 07:04 Urine RBC (Auto) 9.0 /HPF (0.0-6.0) 05/14/17 07:04 U Epithel Cells (Auto) 3.0 /HPF (0-13.0) 05/14/17 07:04 Urine Bacteria (Auto) 1+ /HPF (Negative) 05/13/17 Unknown Urine Mucus 3+ /HPF 05/14/17 07:04
[2017-05-14] MEDS: PROVENTIL IH PRN (13:49)
[2017-05-14] MEDS ORDERED: NACL 0.9% 1000 ML 1,000 ML IV ONE (14:34)
[2017-05-14] MEDS: VANCOMYCIN/NS 1 GM/250 ML 1 GM/250 ML BAG IV SCH ×2 (16:57→23:17)
[2017-05-14] MEDS: BENADRYL IV PRN (17:16)
[2017-05-14] MEDS: TYLENOL PO PRN (17:16)
[2017-05-15] MEDS: NORCO 5/325 PO PRN ×3 (00:31→12:03)
[2017-05-15] MEDS: FLAGYL 500 MG/100 ML 500 MG/100 ML BAG IV SCH (05:15)
[2017-05-15 05:33] LABS: Basophils % (Auto) 0.2 % (0.0-1.8); Eosinophils % (Auto) 3.1 % (0.0-4.3); Hematocrit 33.5 % (30.3-42.9); Hemoglobin 11.3 gm/dl (10.1-14.3); Mean Corpuscular HGB Conc 34 % (30-34); Mean Corpuscular Hemoglobin 30 pg (28-32); Mean Corpuscular Volume 88 fl (79-97); Platelet Count 192 K/mm3 (140-440); Red Blood Count 3.81 M/mm3 (3.65-5.03); Red Cell Distribution Width 12.5 % (13.2-15.2); White Blood Count 8.4 K/mm3 (4.5-11.0)
[2017-05-15 05:55] LABS: Anion Gap 19 mmol/L; BUN/Creatinine Ratio 10; Blood Urea Nitrogen 6 mg/dL (7-17); Calcium 8.3 mg/dL (8.4-10.2); Carbon Dioxide 21 mmol/L (22-30); Chloride 104.4 mmol/L (98-107); Glucose 91 mg/dL (65-100); Potassium 3.9 mmol/L (3.6-5.0); Sodium 140 mmol/L (137-145)
[2017-05-15 08:30] VITALS: BP 128/91
[2017-05-15] MEDS: VANCOMYCIN/NS 1 GM/250 ML 1 GM/250 ML BAG IV SCH (09:34)
--- NOTE | 2017-05-15 12:53 | Discharge Summary ---
Providers - Providers Date of Admission: 05/13/17 18:00 Attending physician: PATTIE MARQUES MD 05/13/17 17:01 Consult to Physician [CONS] Urgent Consulting Provider: SAMI DEL CASTILLO Reason For Exam: sepsis , pid Notified:: awaiting call back Primary care physician: DIRECTOR TOXICOLOGY Hospitalization Reason for admission: syncope Condition: Stable Hospital course: Patient's a 32-year-old female who presented to the hospital altered sensorium and unconsciousness on presentation. The patient reports that she had to have a low abdominal pain which was cramping with thick yellow discharge that had been worsening over the first week. [facility] was [facility] with [facility] and discharged on oral Flagyl. After taken 3 doses she felt the pain became worse to the point that she had a syncopal episode and awoke the hospital. She was seen by DRAMA DIRECTOR with recommendation for patient to be treated with Cefoxitin (2g IV q 6 hrs) or Cefotetan (2g IV q 12 hrs) and Doxycycline 100 mg BID and discharged on the later if pain improves and follow up with them outpatient and the DRAMA DIRECTOR office which is what we dated. The patient also has possible bilateral pneumonia which could have been secondary to aspiration although had pulmonary status was significantly unaffected. There is also a likelihood of a hemorrhagic cyst which is the reason why we'll recommend this outpatient follow-up not for the fever was documented at this time patient is stable for discharge thank you CT brain in December when negative Sepsis secondary to PID Asthma Aspiration pneumonitis 2.7 cm likely hemorrhagic cyst Pelvic inflammatory disease Syncope secondary to severe abdominal pain UTI Metabolic encephalopathy Disposition: TO HOME OR SELFCARE Time spent for discharge: 35 mins Core Measure Documentation - Palliative Care Palliative Care/ Comfort Measures: Not Applicable - Core Measures Any of the following diagnoses?: none - VTE Discharge Requirements Deep Vein Thrombosis/Pulmonary Embolism Present on Admission: No Exam - Physical Exam Narrative exam: VITAL SIGNS: Reviewed. GENERAL: The patient appeared well nourished and normally developed. Vital signs as documented. HEAD: No signs of head trauma. EYES: Pupils are equal. Extraocular motions intact. EARS: Hearing grossly intact. MOUTH: Oropharynx is normal. NECK: No adenopathy, no JVD. CHEST: Chest with clear breath sounds bilaterally. No wheezes, rales, or rhonchi. CARDIAC: Regular rate and rhythm. S1 and S2, without murmurs, gallops, or rubs. VASCULAR: No Edema. Peripheral pulses normal and equal in all extremities. ABDOMEN: Soft, without detectable tenderness. No sign of distention. No rebound or guarding, and no masses palpated. Bowel Sounds normal. MUSCULOSKELETAL: Good range of motion of all major joints. Extremities without clubbing, cyanosis or edema. NEUROLOGIC EXAM: Alert and oriented x 3. No focal sensory or strength deficits. Speech normal. Follows commands. PSYCHIATRIC: Mood normal. SKIN: No rash or lesions. - Constitutional Vitals: Temp Pulse Resp BP Pulse Ox 99.6 F 88 20 128/91 99 05/15/17 07:26 05/15/17 07:26 05/15/17 07:26 05/15/17 07:26 05/15/17 09:32 Plan Activity: advance as tolerated, fall precautions Diet: regular Special Instructions: smoking cessation Follow up with: PRIMARY MD SRINIVASA [Primary Care Provider] - 3-5 Days SAMI DEL CASTILLO MD [Staff Physician] - 7 Days Prescriptions: Doxycycline [Vibramycin CAP] 100 mg PO Q12HR 14 Days capsule
== END 2017-05-15 14:51 | disposition home or self-care (01) | DRG 871 ==
LOC: ED 13:40 → 3A 18:00
PROVIDERS: ADMIT Internal Medicine; ATTEND Internal Medicine
DX: A41.9 Sepsis, unspecified organism (principal); G93.41 Metabolic encephalopathy; R40.20 Unspecified coma; N73.9 Female pelvic inflammatory disease, unspecified; J45.909 Unspecified asthma, uncomplicated; Z82.49 Family history of ischemic heart disease and other diseases of the circulatory system; Z88.0 Allergy status to penicillin
CPT/HCPCS: 36415; 70450; 71010; 71275; 74177; 80048; 80053; 81001; 82140; 82805; 84702; 85007; 85025; 85610; 87040; 87086; 93005; 93010; 94640; 94760; 96374; 96375; J0456; J0696; J1200; J1885; J1956; J2405; J3010; J3370; J7030; J7040; J7050; Q9967

== ENCOUNTER 2017-09-28 21:21 | Emergency (ER) | payer MEDICAID ==
[2017-09-28 23:09] VITALS: BP 111/76
[2017-09-28 23:43] LABS: Basophils # (Auto) 0.1 K/mm3 (0.0-0.1); Basophils % (Auto) 0.6 % (0.0-1.8); Eosinophils # (Auto) 0.3 K/mm3 (0.0-0.4); Eosinophils % (Auto) 2.9 % (0.0-4.3); Hemoglobin 12.7 gm/dl (10.1-14.3); Lymphocytes # (Auto) 1.8 K/mm3 (1.2-5.4); Lymphocytes % (Auto) 17.8 % (13.4-35.0); Mean Corpuscular HGB Conc 34 % (30-34); Mean Corpuscular Hemoglobin 30 pg (28-32); Mean Corpuscular Volume 89 fl (79-97); Monocytes # (Auto) 0.9 K/mm3 (0.0-0.8); Monocytes % (Auto) 8.4 % (0.0-7.3); Platelet Count 182 K/mm3 (140-440); Red Blood Count 4.24 M/mm3 (3.65-5.03); Red Cell Distribution Width 12.5 % (13.2-15.2)
[2017-09-28 23:57] LABS: Alanine Aminotransferase 13 units/L (7-56); Albumin 3.8 g/dL (3.9-5); BUN/Creatinine Ratio 19; Blood Urea Nitrogen 13 mg/dL (7-17); Calcium 8.9 mg/dL (8.4-10.2); Hemolysis Index 5; Lipase 26 units/L (13-60)
[2017-09-29 01:46] LABS: Amorphous Crystals,Urine 1+; Bilirubin,Urine NEG (Negative); Blood,Urine MOD (Negative); Color,Urine Yellow (Yellow); Mucus,Urine FEW /HPF; Protein,Urine <15 mg/dL mg/dL (Negative); Urobilinogen,Urine < 2.0 mg/dL (<2.0)
== END 2017-09-29 01:10 | disposition left against medical advice (07) ==
LOC: ED 21:21
DX: R10.9 Unspecified abdominal pain (principal); K62.89 Other specified diseases of anus and rectum; Z53.21 Procedure and treatment not carried out due to patient leaving prior to being seen by health care provider
CPT/HCPCS: 36415; 80053; 81001; 83690; 84703; 85025